=== PATIENT | female | born 1980 | race Caucasian/White ===

== ENCOUNTER 2021-06-10 16:20 | Outpatient (REF) | payer MEDICAID, SELFPAY ==
[2021-06-10 16:57] LABS: COVID-19 Test Negative (Negative); IDNOW Serial# 08D9AD1C
== END 2021-06-10 16:21 | disposition home or self-care (01) ==
LOC: HO.LAB 16:20
PROVIDERS: PCP Physician Assistant Medical; Visit Provider Internal Medicine
DX: Z20.822 Contact with and (suspected) exposure to COVID-19 (principal)
CPT/HCPCS: 36415; 87635

== ENCOUNTER 2022-04-18 22:00 | Outpatient (REF) | payer MEDICAID, SELFPAY ==
[2022-04-18 22:48] LABS: COVID-19 Test Negative (Negative); IDNOW Serial# 55D5AD1C
== END 2022-04-18 22:01 | disposition home or self-care (01) ==
LOC: HO.LAB 22:00
PROVIDERS: PCP Physician Assistant Medical; Visit Provider Internal Medicine
DX: Z20.822 Contact with and (suspected) exposure to COVID-19 (principal)
CPT/HCPCS: 87635

== ENCOUNTER 2022-06-11 15:00 | Emergency (ER) | payer MEDICAID, SELFPAY ==
[2022-06-11] VITALS (7 sets, daily range): BP systolic 96–124; BP diastolic 64–79; PULSE 101–125; RESP 15–25; TEMP 36.9; O2SAT 98–100
--- NOTE | ~2022-06-11 | CT_ITS ---
EXAMINATION: CT HEAD WITHOUT CONTRAST CLINICAL INFORMATION: Status post fall. COMPARISON: None. TECHNIQUE: Contiguous axial imaging was performed from the skull base to vertex without intravenous administration of contrast. This CT examination was performed using dose optimization techniques as appropriate, variously including the following: *Automated exposure control *Adjustment of mA and/or kV according to patient size (this includes techniques or standardized protocols for targeted exams where dose is matched to indication/reason for exam; i.e. extremities or head) *Use of iterative reconstruction technique DLP: 631 mGy-cm. FINDINGS: There is no intracranial hemorrhage, large infarction, or mass lesion. There is no extra-axial collection. The ventricles are normal in size and configuration without evidence of hydrocephalus. The visualized paranasal sinuses and mastoid air cells are clear. The calvarium is intact. CT/CT head/brain wo IV con IMPRESSION: No acute intracranial abnormality.
[2022-06-11 16:17] LABS: Glucose, Whole Blood 135 mg/dL (60-115)
--- NOTE | 2022-06-11 16:53 | ECG_ITS ---
Test Reason : SYNCOPE Blood Pressure : / mmHG Vent. Rate : 094 BPM Atrial Rate : 094 BPM P-R Int : 128 ms QRS Dur : 078 ms QT Int : 402 ms P-R-T Axes : 056 079 065 degrees QTc Int : 502 ms Normal sinus rhythm Prolonged QT Abnormal ECG No previous ECGs available Referred By: Mina Sherman Electronically Signed By:HANH YEPEZ MD
--- NOTE | 2022-06-11 17:11 | ED.SYNCOPE ---
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 pt went home slept took Benadryl and melatonin before going to bed woke up to go to bathroom felt lightheaded while coming back fell down hitting her head to the cabinet came with laceration between the eyes on the forehead no chest pain no palpitation blood sugar was checked by EMS was 58 patient never had history of hypoglycemia history of minor episode few years ago no seizures no urinary complaint no abdominal pain no nausea vomiting no fever or chills Related Data Previous Rx's Medication Instructions Recorded cefuroxime axetil 250 mg tablet 250 mg PO BID 7 days #14 tabs 06/11/22 Allergies Allergy/AdvReac Type Severity Reaction Status Date / Time No Known Allergies Allergy Verified 06/11/22 16:01 Review of Systems Review of Systems: Yes all other systems are reviewed and are negative [facility] Social History Social History Smoked in Last 30 Days: No Use of substances other than those prescribed or required for medical reasons: No Advance Directives: No Advance Directives Information Provided: No Patient : No Physical Exam Vital Signs: Vital Signs: Last Vital Signs Temp 98.5 F 06/11/22 19:17 Pulse 125 H 06/11/22 20:16 Resp 18 06/11/22 19:17 BP 96/64 06/11/22 20:16 Pulse Ox 100 06/11/22 19:17 O2 Del Method 06/11/22 19:17 BMI result Body Mass Index 20.0 Appearance: Alert. Oriented X3. No acute distress. Eyes: PERRLA, No Nystagmus ENT: Pharynx normal. Oral Mucosa moist laceration above the nose Neck: Normal inspection. Neck supple. CVS: Normal heart rate and rhythm. Pulses normal. Respiratory: No respiratory distress. Equal air entry bilateral, no wheezing/rales/rhonchi Abdomen: Soft and nontender. Bowel sounds are present, no mass palpable, no CVA tenderness Skin: Skin warm and dry. Normal skin color. Normal skin turgor. Diffuse urticaria, laceration on forehead Extremities: No lower extremity edema. No calf tenderness Neuro: Oriented X 3. No motor deficit. No sensory deficit.No cerebellar signs , cranial nerves II-XII intact HEENT: Face images: 1. 3 cm long superficial laceration 2. 1.5 cm superficial laceration Medications Administered Discontinued Medications Generic Name Dose Route Start Last Admin Trade Name Freq PRN Reason Stop Dose Admin Diphenhydramine HCl 50 mg 06/11/22 17:25 06/11/22 17:27 Diphenhydramine Hcl 50 Mg/Ml Vial IVPUSH 06/11/22 17:26 50 mg ONCE ONE Administration Famotidine 20 mg 06/11/22 19:24 06/11/22 19:33 Famotidine/Pf 20 Mg/2 Ml Vial IVPUSH 06/11/22 19:25 20 mg ONCE ONE Administration Sodium Chloride 1,000 mls @ 999 mls/hr 06/11/22 16:53 06/11/22 18:27 Ns IV 06/11/22 17:53 Infused .Q1H1M ONE Infusion Sodium Chloride 1,000 mls @ 999 mls/hr 06/11/22 20:25 06/11/22 21:38 Ns IV 06/11/22 21:25 Infused .Q1H1M ONE Infusion Magnesium Sulfate 2 gm in 50 mls @ 100 mls/hr 06/11/22 21:19 06/11/22 22:18 Magnesium Sulfate/H2o IV 06/11/22 21:48 Infused ONCE ONE Infusion Ceftriaxone Sodium 1 gm/ 50 mls @ 100 mls/hr 06/11/22 22:34 06/11/22 22:40 Sodium Chloride IV 06/11/22 23:03 100 mls/hr ONCE ONE Administration Ibuprofen 600 mg 06/11/22 20:22 06/11/22 20:31 Ibuprofen 600 Mg Tablet PO 06/11/22 20:23 600 mg ONCE ONE Administration Lidocaine HCl 5 ml 06/11/22 16:54 06/11/22 18:01 Lidocaine Hcl 2 % Mpf 5 Ml Vial INFILTRATI 06/11/22 16:55 5 ml ONCE ONE Administration Methylprednisolone Sodium Succinate 125 mg 06/11/22 16:54 06/11/22 18:28 Methylprednisolone Sod Succ 125 Mg/2 Ml Vial IVPUSH 06/11/22 16:55 Not Given ONCE ONE Midazolam HCl 1 mg 06/11/22 17:12 06/11/22 17:18 Midazolam Hcl/Pf 2 Mg/2 Ml Vial IVPUSH 06/11/22 17:13 1 mg ONCE ONE Administration Medical Decision Making Medical Decision Making [facility] Narrative: Patient with vasovagal syncope episode likely from UTI and a poor sleep and use of Benadryl and melatonin without eating much food head CT is negative patient feeling much better at time of discharge ambulating steady gait Differential Diagnoses: Differential diagnosis (Vasovagal syncope, infection, medication overdose cardiac arrhythmia, ACS, substance abuse,) Differential Diagnosis: The differential diagnosis associated with the patient?s presentation includes: Procedures Laceration Laceration 1: Site: face Side (If applicable): right Size (cm): 3 Description: linear Depth: simple, single layer Local Anesthetic: lidocaine 2% Amount of anesthesia used (mL): 2 Skin layer closed with: nylon Size (cm): 6-0 Number of sutures: 5 Technique: simple, interrupted Discharge Plan Discharge Clinical Impression: Syncope, Hypoglycemia Patient Disposition: Home, Self-Care Instructions: Urinary Tract Infection in Women (ED), Non-diabetic Hypoglycemia (ED), Facial Laceration (ED) Additional Instructions: Drink plenty of fluids Care as advised Suture removal in 7 days Follow with PCP Antibiotic for urinary tract infection as prescribed Prescriptions: New cefuroxime axetil 250 mg tablet 250 mg PO BID 7 Days Qty: 14 0RF Interventions: ED Discharge Assessment Last Done: 06/11/22 22:56 Discharge Date/Time: 06/11/22 22:59
[2022-06-11] MEDS: Midazolam HCl/PF 2 MG/2 ML VIAL 1 MG IVPUSH (17:18)
[2022-06-11] MEDS: 0.9 % Sodium Chloride 1,000 ML 999 ML IV ×2 (17:22→20:32)
[2022-06-11] MEDS: diphenhydrAMINE HCL 50 MG/ML VIAL IVPUSH (17:27)
[2022-06-11 17:56] LABS: MANUAL DIFF FLAG NO
[2022-06-11 17:59] LABS: Basophils Percent Auto 0.3 % (0-2); Eosinophils Percent Auto 0.1 % (0-4); Hematocrit 37.6 % (37.0-47.0); Hemoglobin 13.1 g/dl (12.0-16.0); Imm Gran Abs Auto 0.05 X10*3/uL (0.00-0.03); Imm Gran Pct Auto 0.3 % (0.0-0.4); Lymphocytes Absolute Auto 2.5 X10*3/uL (1.2-4.9); Lymphocytes Percent Auto 16.6 % (20-40); Mean Corpuscular HGB Conc 34.8 g/dl (31.0-35.0); Mean Corpuscular Volume 83.2 fL (80.0-98.0); Mean Platelet Volume 8.6 fL (9.4-12.3); Monocytes Absolute Auto 0.9 X10*3/uL (0.1-1.2); Monocytes Percent Auto 5.7 % (2-11); Neutrophils Absolute Auto 11.7 x10*3/uL (2.0-8.3); Platelet Count 281 X10*3/uL (160-400); Red Blood Count 4.52 X10*6/uL (4.20-5.50); Red Cell Distribution Width 12.3 % (11.0-16.0); White Blood Count 15.2 X10*3/uL (4.8-10.8)
[2022-06-11] MEDS: Lidocaine HCl 2 % MPF 5 ML VIAL INFILTRATI (18:01)
[2022-06-11 18:15] LABS: Alanine Aminotransferase 21 U/L (0-31); Albumin Level 3.9 g/dL (3.5-5.0); Alkaline Phosphatase 57 U/L (39-117); Anion Gap 14 (12-20); Aspartate Amino Transferase 26 U/L (5-31); Bilirubin Total 0.6 mg/dL (0.0-1.0); Blood Urea Nitrogen 11 mg/dL (9-16); Calcium 8.5 mg/dL (8.4-10.2); Carbon Dioxide 22 mmol/L (22-29); Chloride 104 mmol/L (96-108); Creatinine Clr Calc Pharmacy 96.1; Estimated Glomerular Filt Rate > 60; Glucose Random 83 mg/dL (60-115); Magnesium 1.5 mg/dL (1.6-2.6); Potassium 3.5 mmol/L (3.3-5.1); Sodium 136 mmol/L (135-145); Total Protein 6.3 g/dL (6.5-8.0)
[2022-06-11 18:25] LABS: HCG Quantitative < 2 mIU/mL; Troponin-I High Sensitivity < 3.5 ng/L (<3.5-17.0)
[2022-06-11] MEDS: Famotidine/PF 20 MG/2 ML VIAL IVPUSH (19:33)
--- NOTE | 2022-06-11 19:36 | PC.NURSE ---
Addendum entered by Sandy Morales RN 06/11/22 19:54: Patient is drowsy from receiving benadryl on previous shift, but awakens to voice and is oriented x3. Laceration sutured by . Patient resting in stretcher with mother bedside. Call [facility]ado is within reach. Patient provided with jairon natalia and crackers per request. Original Note: Anwer bedside with this RN. Patient still declining solumedrol and atarax despite persistent hives to neck and torso. Patient offered IM epi and also declines.
[2022-06-11 19:43] LABS: Influenza A PCR NEGATIVE (Negative); Influenza B PCR NEGATIVE (Negative); Resp Syncy Virus RNA Qual PCR NEGATIVE (Negative); SARS COV2 PCR INHOUSE NEGATIVE (Negative)
[2022-06-11] MEDS: Ibuprofen 600 MG TABLET PO (20:31)
[2022-06-11] MEDS: Magnesium Sulfate/H2O 2 GM/50 ML PIGGYBACK IV (21:38)
[2022-06-11 21:47] LABS: Appearance Urine Cloudy; Color Urine RED; Glucose Urine UA Negative (Negative); Leukocyte Esterase Urine Moderate (2+) (Negative); Nitrite Urine Positive (Negative); Specific Gravity - Urine 1.025 (1.005-1.025); UMIC TRIGGER UACC YES; Urine Blood Large (3+) (Negative); Urine Ketones >=80 mg/dL (Negative); Urine Protein 100 (2+) mg/dL (Neg-Trace)
[2022-06-11 22:04] LABS: Amphetamine Screen Urine POSITIVE (Not Detect); Barbiturates, Urine Not Detected (Not Detect); Benzodiazepines Screen Urine POSITIVE (Not Detect); Cannabinoid Screen Urine Not Detected (Not Detect); Cocaine Screen Urine Not Detected (Not Detect); Fentanyl, urine Not Detected (Not Detect); Opiate Screen Urine Not Detected (Not Detect); Phencyclidine Screen Urine Not Detected (Not Detect)
[2022-06-11] MEDS: cefTRIAXone sodium 1 GM in 0.9 % Sodium Chloride 50 ML IV (22:40)
[2022-06-11 22:43] LABS: Bacteria Urine 4+ (None Seen); Hyaline Casts Urine 0-2 /LPF (0-2); RBC Urine >20 /HPF (0-2); UACC Culture Trigger YES; WBC Urine >50 /HPF (0-5)
== END 2022-06-11 22:59 | disposition home or self-care (01) ==
PROVIDERS: Emergency Provider Internal Medicine; PCP Physician Assistant Medical
DX: S01.81XA Laceration without foreign body of other part of head, initial encounter (principal); R55 Syncope and collapse; R73.9 Hyperglycemia, unspecified; W01.10XA Fall on same level from slipping, tripping and stumbling with subsequent striking against unspecified object, initial encounter; Y93.9 Activity, unspecified; Y92.9 Unspecified place or not applicable; Y99.9 Unspecified external cause status; Z20.822 Contact with and (suspected) exposure to COVID-19; Z79.899 Other long term (current) drug therapy
CPT/HCPCS: 0241U; 12013; 36415; 70450; 80053; 80307; 81001; 82947; 83735; 84484; 84702; 85025; 87086; 93005; 96361; 96365; 96375; 99285; J0696; J1200; J2250; J3475